=== PATIENT | female | born 1995 | race Caucasian/White ===

== ENCOUNTER 2017-09-28 13:45 | Emergency (ER) | payer OTHER, BC ==
[~2017-09-28] VITALS: Ht 162.6 cm; Wt 67.0 kg
[~2017-09-28 13:45] MED LIST: KEFLEX500 MG PO; LAMICTAL25 MG PO; LAMOTRIGINE200 MG PO; MOTRIN600 MG PO; PERCOCET 5/31 TABLET PO; SPRINTEC1 EACH PO; VALACYCLOVIR1000 MG; VALACYCLOVIR500 MG PO; VALTREX1000 MG PO; ZOFRAN ODT4 MG PO; ZOFRAN4 MG PO
[2017-09-28 14:59] LABS: HEMATOCRIT 39.3 % (36.0-46.0); HEMOGLOBIN 13.4 G/DL (11.9-15.5); MCH 31.2 PG (29.0-34.0); MCHC 34.1 G/DL (30.0-36.0); MCV 91.4 FL (83-99); PLATELET COUNT 229 K/uL (156-360); RBC DIS.WIDTH-CV 12.8 % (11.8-14.6); RBC DIS.WIDTH-SD 42.8 % (39-53); WHITE BLOOD COUNT 12.5 K/uL (4.1-10.2)
[2017-09-28 15:07] LABS: CHLORIDE 104 mEq/L (99-109); POTASSIUM 3.7 mEq/L (3.7-5.4); SODIUM 139 mEq/L (136-147)
[2017-09-28 15:08] LABS: GLUCOSE 130 mg/dL (70-99)
[2017-09-28 15:12] LABS: CREATININE 0.8 mg/dL (0.6-1.3); GFR ESTIMATE (CALCULATED) > 59 mL/min/
[2017-09-28 15:13] LABS: UREA NITROGEN (BUN) 13 mg/dL (9-23)
[2017-09-28 15:23] LABS: QUANTITATIVE HCG < 4.0 MIU/ML
[2017-09-28] MEDS ORDERED: INDOCIN50 MG PO (15:51)
[2017-09-28 16:04] VITALS: BP 107/72
== END 2017-09-28 16:05 | disposition home or self-care (01) ==
LOC: EME 13:45
PROVIDERS: Nurse Practitioner Family
DX: S32.010A Wedge compression fracture of first lumbar vertebra, initial encounter for closed fracture (principal); V47.0XXA Car driver injured in collision with fixed or stationary object in nontraffic accident, initial encounter; Y93.C2 Activity, hand held interactive electronic device; Y92.410 Unspecified street and highway as the place of occurrence of the external cause
CPT/HCPCS: 72110; 80048; 84702; 85027; 99281; 99284